=== PATIENT | female | born 1950 | race Hispanic/Latino ===

== ENCOUNTER 2017-04-07 12:30 | Emergency (ER) | payer OTHER, MEDICARE ==
[2017-04-07 12:31] VITALS: BMI 26.6
[2017-04-07 12:41] VITALS: BP 133/85; PULSE 63; RESP 18; TEMP 98; O2SAT 99
[2017-04-07] MEDS ORDERED: Morphine 4 mg/ml ISec IM STA (13:12)
--- NOTE | 2017-04-07 13:17 | ED PDOC ---
Arrival/HPI - General Chief Complaint: Trauma Time Seen by Provider: 04/07/17 13:11 Historian: Patient - History of Present Illness Narrative History of Present Illness (Text): 04/07/17 13:11 Kendal Fajardo is a 66 year old female who presents to the emergency department complaining of a mechanical trip and fall prior to arrival. Patient states that she fell onto her right wrist and also reports to scraping her chin on the floor. Patient denies any head injuries, trauma, headache, loss of conscious, or any other complaint at this time. Time/Duration: Prior to Arrival Symptom Onset: Sudden Symptom Course: Unchanged Context: Home Past Medical History - Provider Review Nursing Documentation Reviewed: Yes - Infectious Disease Hx of Infectious Diseases: None - Cardiac Hx Cardiac Disorders: Yes Hx Hypertension: Yes - Pulmonary Hx Asthma: No - Neurological Hx Neurological Disorder: No - HEENT Hx HEENT Disorder: Yes Other/Comment: glasses - Renal Hx Renal Disorder: No - Endocrine/Metabolic Hx Endocrine Disorders: No - Hematological/Oncological Hx Blood Disorders: No - Integumentary Hx Dermatological Disorder: No - Musculoskeletal/Rheumatological Hx Musculoskeletal Disorders: No - Gastrointestinal Hx Gastrointestinal Disorders: No - Genitourinary/Gynecological Hx Genitourinary Disorders: No - Psychiatric Hx Psychophysiologic Disorder: Yes Hx Depression: Yes Hx Emotional Abuse: No Hx Physical Abuse: No Hx Substance Use: No - Surgical History Other/Comment: R knee surgery - Anesthesia Hx Anesthesia: Yes Hx Anesthesia Reactions: No - Suicidal Assessment Feels Threatened In Home Enviroment: No Family/Social History - Physician Review Nursing Documentation Reviewed: Yes Family/Social History: No Known Family HX Smoking Status: Never Smoked Hx Alcohol Use: Yes (social) Frequency of alcohol use: Socially Hx Substance Use: No Allergies/Home Meds Allergies/Adverse Reactions: Allergies No Known Allergies Allergy (Verified 04/07/17 12:37) Home Medications: Home Meds Medication Instructions Recorded Confirmed Atenolol 25 mg PO DAILY 12/07/11 04/07/17 Escitalopram [Lexapro] 10 mg PO DAILY 12/07/11 04/07/17 Olmesartan Medoxomil [Benicar] 5 mg PO DAILY 04/07/17 04/07/17 Physical Exam - Physical Exam Narrative Physical Exam (Text): - Review of Systems Constitutional: Normal. absent: Fatigue, Weight Change, Fevers Eyes: Normal ENT: denies sore throat, denies tristhmus Respiratory: Normal. absent: SOB, Cough, Sputum Cardiovascular: absent: Chest Pain, Palpitations, Syncope Gastrointestinal: Normal. absent: Abdominal Pain, Diarrhea, Nausea, Vomiting Genitourinary: Normal. absent: Dysuria, Frequency, Hematuria, vaginal bleeding Musculoskeletal: Wrist injury. absent: Arthralgias, Back Pain, Neck Pain Skin: Abrasion to chin. Neurological: absent: Focal Weakness Endocrine: Normal Hemo/Lymphatic: Normal Psychiatric: No suicidal or homicidal ideations Physical exam Patient appears age appropriate in no distress, speaking full sentences without difficulty - Systems Exam Head: Present: Atraumatic, Normocephalic Pupils: Present: PERRL Extroacular Muscles: Present: EOMI Conjunctiva: Present: Normal Mouth: Present: Moist Mucous Membranes Neck: Present: Normal Range of Motion. No: MIDLINE TENDERNESS, Paraspinal Tenderness Respiratory/Chest: Present: Clear to Auscultation, Good Air Exchange. No: Respiratory Distress, Accessory Muscle Use, Tachypneic Cardiovascular: Present: Regular Rate and Rhythm, Normal S1, S2, Peripheal Pulses Present. No: Murmurs Abdomen: Present: Normal Bowel Sounds. No: Tenderness, Distention, Peritoneal Signs, Rebound, Guarding Back: Present: Normal Inspection. No: Midline Tenderness, Paraspinal Tenderness Upper Extremity: Visible deformity to right wrist with diffuse tenderness to palpation. Distal neurovascular fully intact. Patient's elbow and hand unremarkable. No: Cyanosis, Edema Lower Extremity: Present: Normal Inspection. No: Edema Neurological: Present: GCS=15, Speech Normal, cranial nerves II through XII fully intact with no cerebellar abnormality, neurosensory fully intact. No focal neurological deficits. Skin: Superficial abrasion to chin with no active bleeding. Lymphatic: Present: OX3, NI, NC Psychiatric: Present: Alert, Oriented x 3, Normal Insight, Normal Concentration Head atraumatic. No nasal bone deformity or tenderness, no facial or jaw pain/ swelling. No neck midline tenderness, thoracic and lumbar spine with no midline tenderness. Pt moving b/l upper and lower extremities without difficulty, 5/5 strength, with full active and passive ROM (except for patient's right wrist). Distal neurovascular fully intact. Abd soft/nt/nd, no hematomas, no peritoneal signs. Neg. pelvic rock. Vital Signs Reviewed: Yes Vital Signs Temp Pulse Resp BP Pulse Ox 04/07/17 12:41 98.0 F 63 18 133/85 99 Temperature: Afebrile Blood Pressure: Normal Pulse: Regular Respiratory Rate: Normal Appearance: Positive for: Well-Appearing, Non-Toxic, Comfortable Pain Distress: None Mental Status: Positive for: Alert and Oriented X 3 Medical Decision Making ED Course and Treatment: 04/07/17 13:11 Impression: 66 year old female complaining of a mechanical trip and fall with a right wrist injury and an abrasion to the chin which occurred prior to arrival. Differential Diagnosis included but are not limited to: Mechanical Fall Plan: -- Right hand X-ray -- Right wrist X-ray -- Morphine -- Reassess and disposition Prior Visits: Notes and results from previous visits were reviewed. Patient last seen in the ED on Progress Notes: 04/07/17 14:07 Right Wrist X-ray: IMPRESSION: Acute nondisplaced comminuted impacted intra-articular fracture in the distal radius and mild soft tissue swelling at the wrist joint. 04/07/17 14:09 Right hand X-ray: IMPRESSION: Acute nondisplaced comminuted impacted intra-articular fracture in the distal radius and mild soft tissue swelling at the wrist joint. 04/07/17 14:11 Splint applied to patient. Instructed to follow up with an orthopedist. 04/07/17 14:44 pt in no distress, states pain controlled. Distal neurovasc. fully intact Pt states she understands to return to the ER right away for new or worsening symptoms or for inability to f/u with PMD or specialist as instructed. Patient states that she fully agrees with and understands discharge instructions. States that she agrees with the plan and disposition. Verbalized and repeated discharge instructions and plan. I have given the patient opportunity to ask any additional questions. pt states she is not driving home - RAD Interpretation Radiology Orders: 04/07/17 13:12 HAND RIGHT 3 VIEWS [RAD] Stat WRIST, RIGHT 3 VIEWS [RAD] Stat - Medication Orders Current Medication Orders: Discontinued Medications Morphine Sulfate (Morphine) 4 mg IM STAT STA Stop: 04/07/17 13:13 Last Admin: 04/07/17 13:27 Dose: 4 mg MAR Pain Assessment Document 04/07/17 13:27 AB (Rec: 04/07/17 13:30 AB [id number]) Pain Reassessment Is this a pain reassessment? Yes Sleep Is patient sleeping during reassessment? No Presence of Pain Presence of Pain Yes Pain Scale Used Pain Scale Used Numeric Location Left, Right or Bilateral Right Pain Location Body Site Wrist Description Pain Behavior Facial Grimacing Aggravating Factors Changing Position Alleviating Factors/Management Medication Techniques Ice Position Change Elevation Alleviating Factors elevation, ice, medication IM Administration Charges Document 04/07/17 13:27 AB (Rec: 04/07/17 13:30 AB [id number]) Injection Site MAR Injection Site Left Deltoid Charges for Administration # of IM Administrations 1 Tetanus/Reduced Diphtheria/Acell Pertussis (Boostrix Vaccine Inj) 0.5 ml IM .ONCE ONE Stop: 04/07/17 13:52 Last Admin: 04/07/17 14:16 Dose: 0.5 ml MAR Immunization Data Document 04/07/17 14:16 AB (Rec: 04/07/17 14:19 AB [id number]) Immunization Data Vaccine [employer] [facility] Vaccine Lot Number [id number] Vaccine Expiration Date 01/20/19 Site Given Right Deltoid Route Intramuscular Immunization Units ml Disposition/Present on Arrival - Present on Arrival Any Indicators Present on Arrival: No History of DVT/PE: No History of Uncontrolled Diabetes: No Urinary Catheter: No History of Decub. Ulcer: No History Surgical Site Infection Following: None - Disposition Have Diagnosis and Disposition been Completed?: Yes Diagnosis: Radial fracture Disposition: HOME/ ROUTINE Disposition Time: 14:45 Patient Plan: Discharge Condition: GOOD Discharge Instructions (ExitCare): Wrist Fracture in Adults (ED) Additional Instructions: PLEASE RETURN TO THE EMERGENCY DEPARTMENT FOR NEW OR WORSENING SYMPTOMS. RETURN RIGHT AWAY IF YOU CANNOT FOLLOW UP WITH YOUR PRIMARY CARE DOCTOR, CLINIC, OR SPECIALIST IN 1-2 DAYS. Prescriptions: oxyCODONE/Acetaminophen [Percocet 5/325 mg Tab] 1 ea PO TID PRN #12 tab PRN Reason: Pain, Moderate (4-7) Referrals: PCP,NO [Primary Care Provider] - Follow up with primary Sina Huertas DO [Staff Provider] - Follow up with primary Maria R Deshpande MD [Staff Provider] - Follow up with primary Forms: [email or web address] ([place]anian), WORK NOTE
[2017-04-07] MEDS ORDERED: TDAP Vaccine 0.5 mL Syr IM ONE (13:51)
--- NOTE | 2017-04-07 13:57 | RAD ---
PROCEDURE: Right Wrist Radiographs. HISTORY: Fall COMPARISON: None. FINDINGS: BONES: There is an acute nondisplaced comminuted impacted intra-articular fracture in the distal radius. JOINTS: The proximal and distal carpal rows are maintained. No dislocation. SOFT TISSUES: There is mild soft tissue swelling at the wrist joint. OTHER FINDINGS: None. IMPRESSION: Acute nondisplaced comminuted impacted intra-articular fracture in the distal radius and mild soft tissue swelling at the wrist joint. .
--- NOTE | 2017-04-07 13:59 | RAD ---
PROCEDURE: Right Hand Radiographs. HISTORY: fall COMPARISON: None. FINDINGS: BONES: There is an acute nondisplaced comminuted impacted intra-articular fracture in the distal radius. There is mild periarticular bone demineralization. JOINTS: The proximal and distal carpal rows are maintained. SOFT TISSUES: There is mild soft tissue swelling at the wrist joint. OTHER FINDINGS: None. IMPRESSION: Acute nondisplaced comminuted impacted intra-articular fracture in the distal radius and mild soft tissue swelling at the wrist joint.
== END 2017-04-07 15:15 | disposition home or self-care (01) ==
LOC: ED 12:30
DX: S52.501A Unspecified fracture of the lower end of right radius, initial encounter for closed fracture (principal); W01.0XXA Fall on same level from slipping, tripping and stumbling without subsequent striking against object, initial encounter; Y93.9 Activity, unspecified; Y92.9 Unspecified place or not applicable; Z23 Encounter for immunization
CPT/HCPCS: 73110; 73130; 90471; 90715; 96372; 99285; J2270